=== PATIENT | female | born 1955 | race Caucasian/White ===

== ENCOUNTER 2017-05-02 13:31 | Emergency (ER) | payer BC ==
[~2017-05-02] VITALS: Ht 157.5 cm; Wt 67.0 kg
[~2017-05-02 13:31] MED LIST: effexor
[2017-05-02 13:36] VITALS: TEMP 36.4; Ht 157.5 cm; Wt 67.0 kg
[2017-05-02] MEDS ORDERED: OXYCODONE HCL IR 5 MG TAB (IMMEDIATE RELEASE) PO STA (14:05)
--- NOTE | 2017-05-02 14:46 | DIAGNOSTIC IMAGING REPORT ---
LUMBAR SPINE 5 VIEWS CLINICAL HISTORY: Low back pain. No history of trauma. FINDINGS: 5 views of the lumbar spine are obtained. No prior studies are available for comparison at the time of dictation. The skeletal structures are osteopenic. There is no radiographic evidence of fracture or malalignment. Vertebral body height and alignment are maintained. There are postoperative changes consistent with discectomy at L3-L4 with laminectomy and posterior fusion at this level. The orthopedic hardware appears intact. The transverse and remaining spinous processes are intact. Apparent mild lumbar levocurvature may be positional. Anterior osteophytes are seen at L2-L3 and L4-L5. There is no evidence of spondylolysis. Mild disc space narrowing is seen at L2-L3. The L3-L4 disc is surgically absent. The remaining disc spaces are maintained. Mild facet arthropathy seen at L5 to S1. The visualized bony pelvis appears intact. Mild sclerotic change is noted in the sacroiliac joints. There is a nonobstructed abdominal bowel gas pattern. Moderate constipation is observed. IMPRESSION: 1. No acute bony abnormality is seen involving the lumbosacral spine. 2. Osteopenia with mild spondylotic and postoperative change as above. Electronically signed by: Mejia Moreau M.D. 05/02/2017 2:45 PM Dictated Date/Time: 05/02/2017 2:43 PM
[2017-05-02] MEDS ORDERED: OXYC1TAB3 PO (15:23)
[2017-05-02 15:30] VITALS: BP 138/81; PULSE 79; O2SAT 99
--- NOTE | 2017-05-02 19:53 | EMERGENCY ROOM VISIT NOTE ---
History Report prepared by Arturo: Julai Smith Under the Supervision of: Dr. Fly Lezama M.D. First contact with patient: 13:55 Chief Complaint: BACK PAIN Stated Complaint: SEVERE BACK PAIN, SHOOTS DOWN LEGS History of Present Illness The patient is a 62 year old female who presents to the Emergency Room with complaints of worsening lower back pain for the past two days. She lifted a heavy suitcase on Wednesday and that exacerbated her pain. She then traveled for over 24 hours to return to [place] from [place]. She states that sitting for all of those hours also exacerbated her pain. The patient describes her pain as a sharp, burning pain and states that it shoots down both legs. She has intermittent tingling in the legs bilaterally. She rates her pain as a 10/10 in severity. Movement exacerbates her pain. She is taking Aleve and ibuprofen for her symptoms. The patient denies numbness, fever, chest pain, shortness of breath, abdominal pain, and loss of control of bowels or bladder. She has a history of a herniated nucleus pulposus and states that her current pain feels similar to the back pain that she experienced previously. Source of History: patient Onset: 2 days ago Position: back (lower) Symptom Intensity: 10/10 Quality: burning, sharp Timing: worsening Modifying Factors (Worsening): movement, other (heavy lifting, prolonged sitting) Associated Symptoms: No fevers, No chest pain, No SOB, No abdominal pain, No numbness Review of Systems See HPI for pertinent positives & negatives. A total of 10 systems reviewed and were otherwise negative. Past Medical & Surgical Medical Problems: (1) Disc displacement, lumbar Surgical Problems: (1) History of appendectomy (2) History of hysterectomy Family History Cancer Kidney disease Kidney stones Social History Smoking Status: Never Smoker Smokeless Tobacco Use: No Alcohol Use: none Drug Use: none Marital Status: Housing Status: lives with significant other Occupation Status: employed Current/Historical Medications Scheduled PRN Oxycodone Ir (Roxicodone Ir), 5 MG PO Q4H PRN for Pain Allergies Coded Allergies: No Known Allergies (Unverified , 07/19/13) Physical Exam Vital Signs Date Time Temp Pulse Resp B/P (MAP) Pulse Ox O2 Delivery O2 Flow Rate FiO2 05/02/17 15:30 79 20 138/81 99 Room Air 05/02/17 13:36 36.4 81 18 174/84 95 Room Air Physical Exam Constitutional: Vital signs reviewed. Eyes: Pupils are equal round reactive to light. Conjunctiva are noninjected. ENT: Pharynx is clear without erythema or exudate. Mucous membranes are moist. Neck supple without meningeal signs. Respiratory: Clear to auscultation bilaterally. Breath sounds are equal bilaterally. Cardiovascular: Regular rate and rhythm. No rubs or gallops. GI: Soft, nondistended and nontender. Bowel sounds are present. Musculoskeletal: Mild midline tenderness to the lumbosacral spine. No peripheral edema. No tenderness or lower extremities. Integumentary: No cyanosis. Neurological: The patient is awake and alert. No focal deficits. Motor and sensation intact throughout the lower extremities, DTR are 2+ ankles and knees, normal gait. Psychiatric: Normal affect. Medical Decision & Procedures ER Provider Diagnostic Interpretation: Radiology results as stated below per my review and the radiologist's interpretation: LUMBAR SPINE 5 VIEWS CLINICAL HISTORY: Low back pain. No history of trauma. FINDINGS: 5 views of the lumbar spine are obtained. No prior studies are available for comparison at the time of dictation. The skeletal structures are osteopenic. There is no radiographic evidence of fracture or malalignment. Vertebral body height and alignment are maintained. There are postoperative changes consistent with discectomy at L3-L4 with laminectomy and posterior fusion at this level. The orthopedic hardware appears intact. The transverse and remaining spinous processes are intact. Apparent mild lumbar levocurvature may be positional. Anterior osteophytes are seen at L2-L3 and L4-L5. There is no evidence of spondylolysis. Mild disc space narrowing is seen at L2-L3. The L3-L4 disc is surgically absent. The remaining disc spaces are maintained. Mild facet arthropathy seen at L5 to S1. The visualized bony pelvis appears intact. Mild sclerotic change is noted in the sacroiliac joints. There is a nonobstructed abdominal bowel gas pattern. Moderate constipation is observed. IMPRESSION: 1. No acute bony abnormality is seen involving the lumbosacral spine. 2. Osteopenia with mild spondylotic and postoperative change as above. Electronically signed by: Mejia Moreau M.D. 05/02/2017 2:45 PM Dictated Date/Time: 05/02/2017 2:43 PM Medications Administered Medications (Trade) Dose Ordered Sig/Alison Route Start Time Stop Time Status Last Admin Dose Admin Oxycodone HCl (Roxicodone Immediate Rel Tab) 5 mg NOW STAT PO 05/02/17 14:05 05/02/17 14:06 DC 05/02/17 14:17 5 MG ED Course 1355: The patient was evaluated in room B10. A complete history and physical exam was performed. 1405: Oxycodone HCl 5 mg PO 1521: I reassessed the patient at this time. She is feeling better and resting comfortably. I discussed the results and treatment plan with the patient. I answered all pertaining that she had. She expressed understanding and verbalized agreement. The patient will be discharged home. Medical Decision This is a 62-year-old female who presents with back pain. Differential diagnosis includes compression fracture, pathologic fracture, hardware displacement, lumbar disc disease, strain. I did perform a limited focused review of portions of the patient's old chart on the electronic medical record. The patient was admitted in 2012 for a herniated nucleus pulposus. Underwent lumbar decompression and spinal fusion by Dr. Moran. Medication Reconciliation: I attest that I have personally reviewed the patient' s current medication list. Blood Pressure Screening: Patient was found to have an elevated blood pressure and was referred to their primary doctor for recheck and further treatment. I did evaluate the patient as noted above. The patient is presenting with low back pain rating down both of her legs. She has a prior history of lumbar disc disease and underwent fusion and laminectomy. She is neurologically intact and has no signs of cauda equina syndrome or spinal cord involvement. I do not suspect DVT. She does not have any swelling to her legs. Her pain is from her back going down both legs with intermittent tingling. I did order and personally review the images of her x-rays. There is no evidence of acute fracture or hardware displacement. I did treat the patient with OxyIR. On reassessment the patient is feeling somewhat better. I did recommend follow up with Dr. Moran and her regular physician for further evaluation. She was given a short prescription for OxyIR and given precautions regarding this medication. She was given return instructions as outlined below. [place] Drug Monitoring Program Search Results: patient reviewed within database, no issues identified Impression Primary Impression: Lumbar radiculopathy Additional Impression: Low back pain Scribe Attestation The scribe's documentation has been prepared under my direct and personally reviewed by me in its entirety. I confirm that the note above accurately reflects all work, treatment, procedures, and medical decision making performed by me. Departure Information Dispostion Home / Self-Care Prescriptions Oxycodone Ir (Roxicodone Ir) 5 Mg Tab 5 MG PO Q4H Y for Pain, #20 TAB Prov: Fly Lezama M.D. 05/02/17 Referrals Gage White M.D. Forms HOME CARE DOCUMENTATION FORM, IMPORTANT VISIT INFORMATION Patient Instructions Back Pain - [facility], [facility] Additional Instructions You have been examined and treated today on an emergency basis only. This is not a substitute for, or an effort to provide, complete comprehensive medical care. It is impossible to recognize and treat all injuries or illnesses in a single emergency department visit. It is therefore important that you follow up closely with your physician. Call as soon as possible for an appointment. Return for worsening symptoms or if you develop fever, vomiting, abdominal pain , loss of control of your bowel or bladder, numbness or weakness to your legs, numbness to your private area, difficulty urinating, or any other concerning symptoms. Problem Qualifiers Additional Impression: Low back pain Chronicity: acute Back pain laterality: bilateral Sciatica presence: with sciatica Sciatica laterality: bilateral sciatica Qualified Codes: M54.42 - Lumbago with sciatica, left side; M54.41 - Lumbago with sciatica, right side
== END 2017-05-02 15:35 | disposition home or self-care (01) ==
LOC: C.EDB 13:32
DX: M54.16 Radiculopathy, lumbar region (principal); M54.5 Low back pain; M51.26 Other intervertebral disc displacement, lumbar region; Z90.710 Acquired absence of both cervix and uterus; Z98.890 Other specified postprocedural states; Z80.9 Family history of malignant neoplasm, unspecified; Z84.1 Family history of disorders of kidney and ureter

== ENCOUNTER 2021-07-26 14:44 | Inpatient (IN) ==
[2021-07-26] MEDS ORDERED: SODIUM CHLORIDE 0.9% 1000ML 1,000 ML IV SCH (16:30)
--- NOTE | 2021-07-26 16:38 | XRay Report ---
XR chest 1V portable HISTORY: 66 years-old Female weakness acute weakness COMPARISON: Chest radiograph 06/28/2013 TECHNIQUE: Portable AP view of the chest FINDINGS: Cardiac silhouette is mildly enlarged. Mild right hemidiaphragmatic elevation. Mild patchy bilateral ill-defined airspace opacities. No pneumothorax or large pleural effusion. Bones appear grossly intac t. IMPRESSION: Ill-defined bilateral pulmonary opacities are suspicious for pneumonia. ACT 112: Negative or not required by law. The above report was generated using voice recognition software. It may contain grammatical, syntax o r spelling errors. Electronically signed by: Gamaliel Gaspar M.D. 07/26/2021 4:37 PM
[2021-07-26] MEDS ORDERED: ONDANSETRON INJ 2 MG/ML 2 ML VIAL IV STA (16:45)
[2021-07-26] MEDS ORDERED: ACETAMINOPHEN 500 MG TAB PO STA (16:45)
--- NOTE | 2021-07-26 17:12 | Emergency Department Note ---
Impression & Plan COVID-19, Fatigue, Nausea, Diarrhea ED Provider Note INFORMANT: Patient ED PROVIDER(S): Estuardo Beaver MD CHIEF COMPLAINT: Dehydration PLAN: Disposition: Admitted Condition: Good Outpatient prescription management: none Referral: None MEDICAL DECISION MAKING: Patient presented to the emergency department because of worsening symptoms consistent with COVID-19 infection. Repeat Covid testing was performed and confirmed her infection. Chest x-ray was concerning for the same. The patient's blood work shows a mild dehydration. She was treated with hydration and Zofran in the ER. She was given Tylenol. She did feel somewhat better with this. Unfortunate her oxygen saturations diminished and she required supplemental oxygen. She was given IV Decadron. CT scan of the chest was performed and negative for thromboembolic disease. The patient had findings consistent with Covid pneumonia. The patient will need further management in the hospital. Patient was discussed with Dr. Mccauley and the patient was evaluated in the ER admitted. Triage Nursing notes reviewed and agree them. Vital Signs: reviewed and remarkable for no significant abnormalities. Differential diagnosis: COVID-19, infection, dehydration, metabolic abnormality, hypo/hyperglycemia, electrolyte disturbance, anemia, hypoxia, cardiac sources, intracerebral event, toxicologic, neurologic, as well as other pathologies. Diagnostics interpreted by me: EC Lead ECG performed and revealed Normal sinus rhythym at 74, normal [place], QRS normal. No elevation or depression. Non-specific ST. No PACs or PVCs Cardiac Monitoring: Cardiac monitoring ordered by me: The patient was placed on continuous cardiac monitoring and observed. It revealed a normal sinus rhythm at 66 beats per minute without ectopy or evidence of dysrhythmia. Imaging studies: Chest x-ray shows mild bibasilar infiltrates consistent with a mild pneumonia. Most likely due to Covid etiology. HPI: The patient is a 66 year old female who presents to the Emergency Room with complaints of dehydration. The patient is COVID-19 positive from a visit at urgent care. This started on the and is worsening. The patient also notes the following associated symptoms, nausea, poor appetite, poor p.o. intake, diarrhea, fatigue, mild headache, cough. The patient has been using [id number] medication for relieving factors. Current pain is rated as 2/10. Patient is not vaccinated against COVID-19. Pt denies LOC, fevers, chills, diaphoresis, visual changes, neck pain, chest pain, breathing difficulties, vomiting, abdominal pain, back pain, melena, hematochezia, urinary symptoms, numbness, focal weakness, lymphadenopathy, rash, or other complaints. ROS: See above HPI for pertinent positives & negatives. A total of 10 systems reviewed and were otherwise negative. PAST MEDICAL HISTORY:See Below , patient denies PAST SURGICAL HISTORY:See Below, FAMILY HISTORY:See Below SOCIAL HISTORY:See Below, non-smoker HOME MEDICATIONS:See Below, patient did [place] ALLERGIES:See Below VITALS:See Below PHYSICAL EXAMINATION: GENERAL: Awake, alert, mildly ill-appearing, in no distress HENT: Normocephalic, atraumatic. Oropharynx unremarkable except for dry mucous membranes. EYES: Normal conjunctiva. Sclera non-icteric. NECK: Inspection normal. Non-tender. Supple. No nuchal rigidity. FROM. No masses. RESPIRATORY: Clear to auscultation. No wheezes. No rales. Normal respiratory effort. CARDIAC: Normal rate. Normal rhythm. No murmurs. No rubs. Extremities warm and well perfused. Pulses equal. No JVD. GI: Soft, non-distended. No tenderness to palpation. No rebound or guarding. No masses. RECTAL: Deferred. MUSCULOSKELETAL: Atraumatic. Chest examination reveals no tenderness. The back is symmetrical on inspection without obvious abnormality. There is no CVA tenderness to palpation. No joint edema. LOWER EXTREMITIES: Calves are equal size bilaterally and non-tender. No edema. N o discoloration. NEURO: Normal sensorium. No sensory or motor deficits noted. SKIN: No rash or jaundice noted. Estuardo Beaver MD Past Med/Surg History Medical History Heartburn Surgical History History of appendectomy History of lumbosacral spine surgery Family History Mother Breast cancer Social History Smoking Status: Never smoker Hx Alcohol Use: No Hx Substance Use: No Preferred Language: Macedonian Communication Ability: Effective Feels Safe at Home: Yes Allergies Allergies Allergy/AdvReac Type Severity Reaction Status Date / Time No Known Allergies Allergy Unverified 07/26/21 16:57 Home Meds Home Medications Medication Instructions Recorded Confirmed omeprazole 20 mg capsule,delayed 20 mg PO DAILY 07/26/21 07/26/21 release Results & Data (ED) Vital Signs Vital Signs - 24 hr 07/26/21 14:51 07/26/21 17:01 07/26/21 17:09 Temperature 36.7 C Temperature Source Temporal Artery Scan Pulse Rate 91 H 91 H 81 Pulse Rate from SpO2 Sensor 81 Pulse Rhythm Regular Respiratory Rate 20 20 26 H Respiratory Effort / Characteristics Non-Labored Spontaneous Respiratory Depth Normal Respiratory Pattern Regular Blood Pressure 107/71 105/62 Blood Pressure Mean 83 76 Pulse Oximetry 96 96 95 Oxygen Delivery Method Room Air Room Air Oxygen Flow Rate Sepsis Recent Fever Within 48 Hours No Sepsis New/Unexplained Change in Mental Status No Sepsis Action Taken by Nursing No Action Required 07/26/21 17:30 07/26/21 17:45 07/26/21 17:46 Temperature Temperature Source Pulse Rate 72 Pulse Rate from SpO2 Sensor 73 Pulse Rhythm Respiratory Rate 30 H Respiratory Effort / Characteristics Respiratory Depth Respiratory Pattern Blood Pressure 105/62 Blood Pressure Mean 76 Pulse Oximetry 90 88 L Oxygen Delivery Method Room Air Nasal Cannula Oxygen Flow Rate 2 Sepsis Recent Fever Within 48 Hours Sepsis New/Unexplained Change in Mental Status Sepsis Action Taken by Nursing 07/26/21 18:00 Temperature Temperature Source Pulse Rate 68 Pulse Rate from SpO2 Sensor 68 Pulse Rhythm Respiratory Rate 24 Respiratory Effort / Characteristics Respiratory Depth Respiratory Pattern Blood Pressure 113/65 Blood Pressure Mean 81 Pulse Oximetry 95 Oxygen Delivery Method Nasal Cannula Oxygen Flow Rate 2 Sepsis Recent Fever Within 48 Hours Sepsis New/Unexplained Change in Mental Status Sepsis Action Taken by Nursing Laboratory Data Result diagrams: 07/26/21 17:14 07/26/21 17:14 Lab Results 07/26/21 07/26/21 07/26/21 Range/Units 17:14 17:14 17:14 WBC 4.89 (4.8-10.8) K/uL RBC 4.77 (4.2-5.4) M/uL Hgb 13.3 (12.0-16.0) g/dL Hct 39.8 (37-47) % MCV 83.4 (80-100) fL MCH 27.9 (25-34) pg MCHC 33.4 (32-36) g/dL RDW Std Deviation 39.0 (36.4-46.3) fL RDW Coeff of Bella 12.9 (11.5-14.5) % Plt Count 165 (130-400) K/uL MPV 11.4 H (7.4-10.4) fL Immature Gran % (Auto) 0.0 % Neut % (Auto) 82.2 % Lymph % (Auto) 10.4 % [place] % (Auto) 7.2 % Eos % (Auto) 0.0 % Baso % (Auto) 0.2 % Neut # (Auto) 4.02 (1.4-6.5) K/uL Lymph # (Auto) 0.51 L (1.2-3.4) K/uL [place] # (Auto) 0.35 (0.11-0.59) K/uL Eos # (Auto) 0.00 (0-0.5) K/uL Baso # (Auto) 0.01 (0-0.2) K/uL Immature Gran # (Auto) 0.00 (0.00-0.02) K/uL Sodium 136 (136-145) mmol/L Potassium 3.3 L (3.5-5.1) mmol/L Chloride 103 (98-107) mmol/L Carbon Dioxide 25 (21-32) mmol/L Anion Gap 8.0 (3-11) BUN 22 H (7-18) mg/dl Creatinine 1.01 (0.6-1.2) mg/dl Est Cr Clr Drug Dosing 51.2 ml/min Est GFR ( Amer) 68.1 ml/min Est GFR (Non-Af Amer) 58.8 ml/min BUN/Creatinine Ratio 21.6 H (10-20) Glucose 106 H (70-99) mg/dl Calcium 8.6 (8.5-10.1) mg/dl Magnesium 2.0 (1.8-2.4) mg/dl Total Bilirubin 0.5 (0.2-1) mg/dl AST 21 (15-37) U/L ALT 20 (12-78) U/L Alkaline Phosphatase 75 (45-117) U/L Troponin I < 0.015 (0-0.045) ng/ml C-Reactive Protein 1.86 H (0-0.29) mg/dl Total Protein 7.2 (6.4-8.2) gm/dl Albumin 3.3 L (3.4-5.0) gm/dl Globulin 3.9 (2.5-4.0) gm/dl Albumin/Globulin Ratio 0.8 L (0.9-2) TSH 1.360 (0.300-4.500) uIu/ml COVID-19 Eval Order Covid19 at [facility] SARS-CoV-2 (PCR) (Negative) 07/26/21 Range/Units 17:14 WBC (4.8-10.8) K/uL RBC (4.2-5.4) M/uL Hgb (12.0-16.0) g/dL Hct (37-47) % MCV (80-100) fL MCH (25-34) pg MCHC (32-36) g/dL RDW Std Deviation (36.4-46.3) fL RDW Coeff of Bella (11.5-14.5) % Plt Count (130-400) K/uL MPV (7.4-10.4) fL Immature Gran % (Auto) % Neut % (Auto) % Lymph % (Auto) % [place] % (Auto) % Eos % (Auto) % Baso % (Auto) % Neut # (Auto) (1.4-6.5) K/uL Lymph # (Auto) (1.2-3.4) K/uL [place] # (Auto) (0.11-0.59) K/uL Eos # (Auto) (0-0.5) K/uL Baso # (Auto) (0-0.2) K/uL Immature Gran # (Auto) (0.00-0.02) K/uL Sodium (136-145) mmol/L Potassium (3.5-5.1) mmol/L Chloride (98-107) mmol/L Carbon Dioxide (21-32) mmol/L Anion Gap (3-11) BUN (7-18) mg/dl Creatinine (0.6-1.2) mg/dl Est Cr Clr Drug Dosing ml/min Est GFR ( Amer) ml/min Est GFR (Non-Af Amer) ml/min BUN/Creatinine Ratio (10-20) Glucose (70-99) mg/dl Calcium (8.5-10.1) mg/dl Magnesium (1.8-2.4) mg/dl Total Bilirubin (0.2-1) mg/dl AST (15-37) U/L ALT (12-78) U/L Alkaline Phosphatase (45-117) U/L Troponin I (0-0.045) ng/ml C-Reactive Protein (0-0.29) mg/dl Total Protein (6.4-8.2) gm/dl Albumin (3.4-5.0) gm/dl Globulin (2.5-4.0) gm/dl Albumin/Globulin Ratio (0.9-2) TSH (0.300-4.500) uIu/ml COVID-19 Eval Order SARS-CoV-2 (PCR) POSITIVE A* (Negative) Administered Medications Discontinued Medications Acetaminophen (Acetaminophen 500 Mg Tab) 1,000 mg PO NOW STA Stop: 07/26/21 16:46 Last Admin: 07/26/21 17:16 Dose: 1,000 mg Documented by: [id number] Dexamethasone Sodium Phosphate (DexamethasonePf 10 Mg/Ml Vial) 6 mg IV NOW ONE Stop: 07/26/21 18:10 Last Admin: 07/26/21 18:41 Dose: 6 mg Documented by: [id number] Sodium Chloride (Nss 1000ml) 1,000 mls @ 125 mls/hr IV .Q8H MAYO Stop: 07/27/21 00:29 Last Admin: 07/26/21 22:28 Dose: 125 mls/hr Documented by: [id number] Infusion: 07/26/21 22:28 Dose: 125 mls/hr Documented by: [id number] Admin: 07/26/21 17:52 Dose: 125 mls/hr Documented by: [id number] Sodium Chloride (Nss 1000ml) 1,000 mls @ 999 mls/hr IV .Q1H1M MAYO Stop: 07/26/21 17:30 Last Infusion: 07/26/21 18:31 Dose: 0 mls/hr Documented by: [id number] Admin: 07/26/21 17:16 Dose: 999 mls/hr Documented by: [id number] Remdesivir 200 mg/ Sodium (Chloride) 250 mls @ 125 mls/hr IV ONE STA; Protocol Stop: 07/26/21 21:01 Last Infusion: 07/26/21 22:28 Dose: 0 mls/hr Documented by: [id number] Admin: 07/26/21 20:09 Dose: 125 mls/hr Documented by: [id number] Ioversol (Optiray 320 125ml) 118 ml IV ONCE ONE Stop: 07/26/21 18:21 Last Admin: 07/26/21 18:20 Dose: 118 ml Documented by: [id number] Ondansetron HCl (Ondansetron Inj 2 Mg/Ml 2 Ml Vial) 4 mg IV NOW STA Stop: 07/26/21 16:46 Last Admin: 07/26/21 17:16 Dose: 4 mg Documented by: [id number] Potassium Chloride (Potassium Chloride Crtab 20 Meq Tabcr) 40 meq PO NOW STA Stop: 07/26/21 19:01 Last Admin: 07/26/21 20:10 Dose: 40 meq Documented by: [id number] Imaging Data Radiologist's Impression: Chest X-Ray 07/26/21 16:18 XR chest 1V portable HISTORY: 66 years-old Female weakness acute weakness COMPARISON: Chest radiograph 06/28/2013 TECHNIQUE: Portable AP view of the chest FINDINGS: Cardiac silhouette is mildly enlarged. Mild right hemidiaphragmatic elevation. Mild patchy bilateral ill-defined airspace opacities. No pneumothorax or large pleural effusion. Bones appear grossly intact. IMPRESSION: Ill-defined bilateral pulmonary opacities are suspicious for pneumonia. ACT 112: Negative or not required by law. The above report was generated using voice recognition software. It may contain grammatical, syntax or spelling errors. Electronically signed by: Gamaliel Gaspar M.D. 07/26/2021 4:37 PM Chest CTA 07/26/21 18:08 CT angio chest PE protocol CT DOSE: 228.80 mGy.cm HISTORY: 66 years-old Female with ?PE, +covid. Acute shortness of breath. COVID Positive. TECHNIQUE: Multiple CTA images of the chest were obtained after the intravenous administration of 118 ml Optiray. Coronal and sagittal MIPS were obtained from the axial data set and were submitted for review. All measurements were obtained according to NASCET criteria. A dose lowering technique was utilized adhering to the principles of ALARA. COMPARISON: Chest radiograph of same day FINDINGS: CTA: Moderate cardiomegaly. No pericardial effusion. Mild atherosclerosis of the aorta without aneurysm or dissection. Respiratory motion artifact mildly limits evaluation of the pulmonary arterial tree. No filling defects identified to suggest thromboembolic disease. CT CHEST: Unremarkable thyroid. Mildly enlarged paratracheal lymph nodes measure up to 10 mm. Prominent nonenlarged hilar lymph nodes. No pneumothorax, or pleural effusion. Patchy multifocal subpleural predominant groundglass opacities are noted within all lobes bilaterally. Mild mosaic attenuation of the lung bases suggest air-trapping. Bronchial wall thickening suggestive of bronchitis. No pneumoperitoneum. Small hiatal hernia. There is an ill-defined hypodense 3.1 cm lesion of the posterior right hepatic lobe on image 12 of series 2. Unremarkable soft tissues. No acute fracture. IMPRESSION: 1. No pulmonary emboli. 2. Multilobar bilateral groundglass densities are suggestive of viral pneumonia. 3. Reactive mediastinal and hilar adenopathy. 4. Small hiatal hernia. 5. Indeterminate ill-defined 3.1 cm lesion of the posterior right hepatic lobe. This could be correlated with a nonemergent follow-up CT or MRI of the liver. ACT 112: Negative or not required by law. The above report was generated using voice recognition software. It may contain grammatical, syntax or spelling errors. Electronically signed by: Gamaliel Gaspar M.D. 07/26/2021 6:53 PM Discharge Plan Visit Data Chief Complaint: Dehydration Stated Complaint: covid+ 9-20-21, dehydrated, vomit, fatigue ED Provider: Estuardo Beaver Discharge Problem: COVID-19, Fatigue, Nausea, Diarrhea Discharge Instructions Interventions: ED Discharge Assessment Last Done: 07/26/21 21:23
[2021-07-26 17:32] LABS: Basophils # (auto) 0.01 K/uL (0-0.2); Basophils % (auto) 0.2 %; Hematocrit (blood only) 39.8 % (37-47); Hemoglobin 13.3 g/dL (12.0-16.0); Lymphocytes # (auto) 0.51 K/uL (1.2-3.4); Lymphocytes % (auto) 10.4 %; Mean Corpuscular Hemoglobin 27.9 pg (25-34); Mean Corpuscular Hgb Conc 33.4 g/dL (32-36); Mean Corpuscular Volume 83.4 fL (80-100); Mean Platelet Volume 11.4 fL (7.4-10.4); Monocytes # (auto) 0.35 K/uL (0.11-0.59); Monocytes % (auto) 7.2 %; Neutrophils # (auto) 4.02 K/uL (1.4-6.5); Neutrophils % (auto) 82.2 %; Platelet Count 165 K/uL (130-400); RDW Coefficient of Variation 12.9 % (11.5-14.5); Red Blood Count 4.77 M/uL (4.2-5.4); White Blood Count 4.89 K/uL (4.8-10.8)
[2021-07-26] MEDS: SODIUM CHLORIDE 0.9% 1000ML 1,000 ML IV SCH ×2 (17:52→22:28)
[2021-07-26 17:53] LABS: Alanine Aminotransferase 20 U/L (12-78); Albumin Level 3.3 gm/dl (3.4-5.0); Aspartate Aminotransferase 21 U/L (15-37); BUN Creatinine Ratio 21.6 (10-20); Blood Urea Nitrogen 22 mg/dl (7-18); Calcium 8.6 mg/dl (8.5-10.1); Carbon Dioxide 25 mmol/L (21-32); Chloride 103 mmol/L (98-107); Creatinine Clr Calc Pharmacy 51.2 ml/min; Est GFR (African American) 68.1 ml/min; Est GFR (Non-African American) 58.8 ml/min; Glucose 106 mg/dl (70-99); Potassium 3.3 mmol/L (3.5-5.1); Sodium 136 mmol/L (136-145)
[2021-07-26 18:04] LABS: Albumin Globulin Ratio 0.8 (0.9-2); Alkaline Phosphatase 75 U/L (45-117); Bilirubin,Total 0.5 mg/dl (0.2-1); Globulin 3.9 gm/dl (2.5-4.0); Total Protein 7.2 gm/dl (6.4-8.2); Troponin I < 0.015 ng/ml (0-0.045)
[2021-07-26] MEDS ORDERED: dexAMETHasone**PF** 10 MG/ML VIAL IV ONE (18:09)
[2021-07-26] MEDS ORDERED: OPTIRAY 320 125ml IV ONE (18:20)
--- NOTE | 2021-07-26 18:34 | History & Physical Report ---
Date of Service July 26, 2021 Assessment & Plan (1) Pneumonia due to COVID-19 virus: Plan: Decadron given in the ER, minimal oxygen requirement this time. Monitor closely on med telemetry. We will start her on remdesivir therapy daily. Pending CRP and pro calcitonin. Patient does not appear septic. No evidence of pulmonary embolus on CT of the chest. Continues court of care. Educated patient on how to prone and encouraged her to do this as often as she is able to tolerate. She verbalized understanding with intent to comply. (2) Hypokalemia: Plan: Diarrhea related to Covid infection. Imodium as needed replace lites as needed. BMP with mag in am. (3) Liver lesion: Plan: Indeterminate ill-defined 3.1 cm lesion of the posterior right hepatic lobe, nonemergent follow-up CT or MRI of the liver (4) DVT prophylaxis: Plan: Lovenox Full code Disposition-to med telemetry [facility] of Present Illness Chief Complaint: worsening covid symptoms Primary Care Provider: Gage White MD The patient is a 66-year-old otherwise healthy female who presented with worsening Covid symptoms. She reports that on , she began to experience fatigue with subsequent worsening of nausea over the weekend followed by vomiting and diarrhea starting on the . On the she went to a urgent care facility and was tested positive for Covid. This was approximately 4 days ago. Since that time she has had worsening apathy to food and worsening diarrhea especially when she eats anything. She denies any abdominal pain, chest pain, productive cough, fevers, chills. She denies taking anything at home for this and is on Prilosec as needed. She is unvaccinated. She is currently on 2 L/min via nasal cannula. Allergies Allergy/AdvReac Type Severity Reaction Status Date / Time No Known Allergies Allergy Unverified 07/26/21 16:57 Home Medications Medication Instructions Recorded Confirmed Type omeprazole 20 mg capsule,delayed 20 mg PO DAILY 07/26/21 07/26/21 History release Past Med/Surg History Medical History Heartburn Surgical History History of appendectomy History of lumbosacral spine surgery Family History Mother Breast cancer Social History Smoking Status: Never smoker Hx Alcohol Use: No Hx Substance Use: No Preferred Language: Polish Communication Ability: Effective Feels Safe at Home: Yes Review of Systems Review of Systems: At least ten systems were reviewed and negative except as indicated in HPI above. Physical Exam Physical Exam: CONSTITUTIONAL: WNWD, vitals as above, mildly ill-appearing, ,NAD EYES: PERRL, normal conjunctivae, no scleral icterus ENT: external ear and nose normal, oropharynx clear, MMM NECK: trachea midline RESPIRATORY: crackles in the right lung smith, no rales or wheezes, normal respiratory effort CARDIOVASCULAR: regular rate and rhythm, S1 and 2 heard without murmurs, gallops or rubs, no JVD, no peripheral edema CHEST: inspection of chest was normal GASTROINTESTINAL: soft, nontender, no guarding MUSCULOSKELETAL: strength 5/5 throughout, head is normocephalic and atraumatic SKIN: warm and dry NEUROLOGIC: No facial palsy, no dysarthria. CN 2-12 grossly intact, no sensory deficit, normal cognition, normal speech, no tremor PSYCHIATRIC: alert cooperative and oriented to person, place and time. Results & Data Results & Data ([facility]) Vital Signs (Past 12 Hours) Vital Signs Temp Pulse Resp BP Pulse Ox 07/26/21 17:45 88 L 07/26/21 17:30 72 30 H 105/62 90 07/26/21 17:09 81 26 H 105/62 95 07/26/21 17:01 91 H 20 96 07/26/21 14:51 36.7 C 91 H 20 107/71 96 Laboratory Results Short CBC 07/26/21 Range/Units 17:14 WBC 4.89 (4.8-10.8) K/uL Hgb 13.3 (12.0-16.0) g/dL Hct 39.8 (37-47) % Plt Count 165 (130-400) K/uL BMP 07/26/21 17:14 Sodium 136 Potassium 3.3 L Chloride 103 Carbon Dioxide 25 BUN 22 H Creatinine 1.01 Glucose 106 H Calcium 8.6 Cardiac Enzymes 07/26/21 Range/Units 17:14 Troponin I < 0.015 (0-0.045) ng/ml Liver Function 07/26/21 Range/Units 17:14 Total Bilirubin 0.5 (0.2-1) mg/dl AST 21 (15-37) U/L ALT 20 (12-78) U/L Alkaline Phosphatase 75 (45-117) U/L Albumin 3.3 L (3.4-5.0) gm/dl Diagnostic Findings Chest X-Ray 07/26/21 16:18 XR chest 1V portable HISTORY: 66 years-old Female weakness acute weakness COMPARISON: Chest radiograph 06/28/2013 TECHNIQUE: Portable AP view of the chest FINDINGS: Cardiac silhouette is mildly enlarged. Mild right hemidiaphragmatic elevation. Mild patchy bilateral ill-defined airspace opacities. No pneumothorax or large pleural effusion. Bones appear grossly intact. IMPRESSION: Ill-defined bilateral pulmonary opacities are suspicious for pneumonia. ACT 112: Negative or not required by law. The above report was generated using voice recognition software. It may contain grammatical, syntax or spelling errors. Electronically signed by: Gamaliel Gaspar M.D. 07/26/2021 4:37 PM Chest CTA 07/26/21 18:08 CT angio chest PE protocol CT DOSE: 228.80 mGy.cm HISTORY: 66 years-old Female with ?PE, +covid. Acute shortness of breath. COVID Positive. TECHNIQUE: Multiple CTA images of the chest were obtained after the intravenous administration of 118 ml Optiray. Coronal and sagittal MIPS were obtained from the axial data set and were submitted for review. All measurements were obtained according to NASCET criteria. A dose lowering technique was utilized adhering to the principles of ALARA. COMPARISON: Chest radiograph of same day FINDINGS: CTA: Moderate cardiomegaly. No pericardial effusion. Mild atherosclerosis of the aorta without aneurysm or dissection. Respiratory motion artifact mildly limits evaluation of the pulmonary arterial tree. No filling defects identified to suggest thromboembolic disease. CT CHEST: Unremarkable thyroid. Mildly enlarged paratracheal lymph nodes measure up to 10 mm. Prominent nonenlarged hilar lymph nodes. No pneumothorax, or pleural effusion. Patchy multifocal subpleural predominant groundglass opacities are noted within all lobes bilaterally. Mild mosaic attenuation of the lung bases suggest air-trapping. Bronchial wall thickening suggestive of bronchitis. No pneumoperitoneum. Small hiatal hernia. There is an ill-defined hypodense 3.1 cm lesion of the posterior right hepatic lobe on image 12 of series 2. Unremarkable soft tissues. No acute fracture. IMPRESSION: 1. No pulmonary emboli. 2. Multilobar bilateral groundglass densities are suggestive of viral pneumonia. 3. Reactive mediastinal and hilar adenopathy. 4. Small hiatal hernia. 5. Indeterminate ill-defined 3.1 cm lesion of the posterior right hepatic lobe. This could be correlated with a nonemergent follow-up CT or MRI of the liver. ACT 112: Negative or not required by law. The above report was generated using voice recognition software. It may contain grammatical, syntax or spelling errors. Electronically signed by: Gamaliel Gaspar M.D. 07/26/2021 6:53 PM Code Status & VTE Plan VTE Prophylaxis Plan VTE Prophylaxis will be ordered: Yes
--- NOTE | 2021-07-26 18:54 | CT Scan Report ---
CT angio chest PE protocol CT DOSE: 228.80 mGy.cm HISTORY: 66 years-old Female with ?PE, +covid. Acute shortness of breath. COVID Positive. TECHNIQUE: Multiple CTA images of the chest were obtained after the intravenous administration of 118 ml Optiray. Coronal and sagittal MIPS were obtained from the axial data set and were submitted for review. All measurements were obtained according to NASCET criteria. A dose lowering technique was u tilized adhering to the principles of ALARA. COMPARISON: Chest radiograph of same day FINDINGS: CTA: Moderate cardiomegaly. No pericardial effusion. Mild atherosclerosis of the aorta without aneurysm or dissection. Respiratory motion artifact mildly limits evaluation of the pulmonary arterial tree. No filling defects identified to suggest thromboembolic disease. CT CHEST: Unremarkable thyroid. Mildly enlarged paratracheal lymph nodes measure up to 10 mm. Prominent nonenla rged hilar lymph nodes. No pneumothorax, or pleural effusion. Patchy multifocal subpleural predominan t groundglass opacities are noted within all lobes bilaterally. Mild mosaic attenuation of the lung b ases suggest air-trapping. Bronchial wall thickening suggestive of bronchitis. No pneumoperitoneum. Small hiatal hernia. There is an ill-defined hypodense 3.1 cm lesion of the post erior right hepatic lobe on image 12 of series 2. Unremarkable soft tissues. No acute fracture. IMPRESSION: 1. No pulmonary emboli. 2. Multilobar bilateral groundglass densities are suggestive of viral pneumonia. 3. Reactive mediastinal and hilar adenopathy. 4. Small hiatal hernia. 5. Indeterminate ill-defined 3.1 cm lesion of the posterior right hepatic lobe. This could be correla gretchen with a nonemergent follow-up CT or MRI of the liver. ACT 112: Negative or not required by law. The above report was generated using voice recognition software. It may contain grammatical, syntax o r spelling errors. Electronically signed by: Gamaliel Gaspar M.D. 07/26/2021 6:53 PM
[2021-07-26] MEDS ORDERED: POTASSIUM CHLORIDE CRTAB 20 MEQ TABCR PO STA (19:00)
[2021-07-26] MEDS ORDERED: REMDESIVIR 200 MG in SODIUM CHLORIDE 0.9% 210 ML IV STA (19:02)
[2021-07-26 19:53] LABS: C Reactive Protein 1.86 mg/dl (0-0.29)
[2021-07-26] MEDS ORDERED: LOPERAMIDE HCL 2 MG CAP PO PRN (21:54)
[2021-07-26] MEDS ORDERED: POLYETHYLENE (MIRALAX) 17 GM PACK PO PRN (21:54)
[2021-07-26] MEDS ORDERED: ALUMINUM/MAGNESIUM SUSP 30 ML UDC PO PRN (21:54)
[2021-07-26] MEDS ORDERED: ONDANSETRON INJ 2 MG/ML 2 ML VIAL IV PRN (21:54)
[2021-07-26] MEDS ORDERED: ACETAMINOPHEN 325 MG TAB PO PRN (21:54)
[2021-07-27 06:42] LABS: Hematocrit (blood only) 36.4 % (37-47); Hemoglobin 12.3 g/dL (12.0-16.0); Mean Corpuscular Hemoglobin 27.6 pg (25-34); Mean Corpuscular Hgb Conc 33.8 g/dL (32-36); Mean Corpuscular Volume 81.8 fL (80-100); Mean Platelet Volume 10.6 fL (7.4-10.4); Platelet Count 154 K/uL (130-400); RDW Standard Deviation 39.5 fL (36.4-46.3); Red Blood Count 4.45 M/uL (4.2-5.4); White Blood Count 3.97 K/uL (4.8-10.8)
[2021-07-27 07:26] LABS: BUN Creatinine Ratio 24.8 (10-20); C Reactive Protein 1.9 mg/dl (0-0.29); Calcium 8.2 mg/dl (8.5-10.1); Creatinine Clr Calc Pharmacy 69.9 ml/min; Est GFR (African American) 97.6 ml/min; Est GFR (Non-African American) 84.2 ml/min; Magnesium 2.2 mg/dl (1.8-2.4); Phosphorus 3.3 mg/dl (2.5-4.9); Potassium 3.9 mmol/L (3.5-5.1)
[2021-07-27] MEDS: dexAMETHasone 6 MG in SYRINGE 0 ML IV SCH (08:10)
[2021-07-27] MEDS: PANTOprazole 40 MG TAB PO SCH (08:11)
[2021-07-27] MEDS: ENOXAPARIN INJ 40 MG/0.4 ML SYR SQ SCH (08:11)
--- NOTE | 2021-07-27 18:03 | Hospitalist Progress Note ---
Date of Service July 27, 2021 Assessment & Plan (1) Pneumonia due to COVID-19 virus: Plan: Continue dexamethasone and remdesivir daily. As patient is now off oxygen at rest will give her trial of two-step test in a.m. Possible discharge to home tomorrow. Continue supportive care (2) Hypokalemia: Plan: Diarrhea related to Covid infection-improved. Imodium as needed replace lites as needed. Replace lytes as needed. (3) Liver lesion: Plan: Indeterminate ill-defined 3.1 cm lesion of the posterior right hepatic lobe, n onemergent follow-up CT or MRI of the liver (4) DVT prophylaxis: Plan: Lovenox Full code Disposition-poss DC to home in am. Paulette Mccauley DO [facility] Hospitalist Admission and Anticipated Discharge Date Admission Date: July 26, 2021 Subjective 66-year-old female admitted with Covid pneumonia She is feeling better today overall Denies shortness of breath, some residual cough present, afebrile, no chills Tolerating p.o. Appears to be off oxygen and oxygenating well on room air. Physical Exam Physical Exam: CONSTITUTIONAL: WNWD, vitals as above, mildly ill-appearing, ,NAD EYES: PERRL, normal conjunctivae, no scleral icterus ENT: external ear and nose normal, oropharynx clear, MMM NECK: trachea midline RESPIRATORY: crackles in the right lung smith, no rales or wheezes, normal respiratory effort CARDIOVASCULAR: regular rate and rhythm, S1 and 2 heard without murmurs, gallops or rubs, no JVD, no peripheral edema CHEST: inspection of chest was normal GASTROINTESTINAL: soft, nontender, no guarding MUSCULOSKELETAL: strength 5/5 throughout, head is normocephalic and atraumatic SKIN: warm and dry NEUROLOGIC: No facial palsy, no dysarthria. CN 2-12 grossly intact, no sensory deficit, normal cognition, normal speech, no tremor PSYCHIATRIC: alert cooperative and oriented to person, place and time. Results & Data Results & Data ([facility]) Vital Signs (Past 12 Hours) Vital Signs Temp Pulse Resp BP Pulse Ox 07/27/21 15:46 37 C 67 16 122/70 94 07/27/21 11:17 36.5 C 73 18 125/72 94 07/27/21 08:07 36.8 C 18 115/63 97 Laboratory Results Short CBC 07/27/21 Range/Units 06:29 WBC 3.97 L (4.8-10.8) K/uL Hgb 12.3 (12.0-16.0) g/dL Hct 36.4 L (37-47) % Plt Count 154 (130-400) K/uL BMP 07/27/21 06:29 Sodium 142 Potassium 3.9 D Chloride 113 H Carbon Dioxide 24 BUN 19 H Creatinine 0.75 Glucose 99 Calcium 8.2 L Cardiac Enzymes 07/26/21 Range/Units 17:14 Troponin I < 0.015 (0-0.045) ng/ml Liver Function 07/26/21 Range/Units 17:14 Total Bilirubin 0.5 (0.2-1) mg/dl Alkaline Phosphatase 75 (45-117) U/L Medications Administered Current Inpatient Medications Acetaminophen (Acetaminophen 325 Mg Tab) 650 mg PO Q4H PRN PRN Reason: Pain or Fever Stop: 08/25/21 21:53 Al Hydrox/Mg Hydrox/Simethicone (Aluminum/Magnesium Susp 30 Ml Udc) 15 ml PO Q4H PRN PRN Reason: Dyspepsia Stop: 08/25/21 21:53 Enoxaparin Sodium (Enoxaparin Inj 40 Mg/0.4 Ml Syr) 40 mg SQ QAM MAYO Stop: 08/26/21 08:59 Last Admin: 07/27/21 08:11 Dose: 40 mg Documented by: Dexamethasone 6 mg/ Syringe 1.5 mls @ 1 mls/min IV DAILY MAYO Stop: 08/26/21 08:59 Last Admin: 07/27/21 08:10 Dose: 1 mls/min Documented by: Remdesivir 100 mg/ Sodium (Chloride) 250 mls @ 250 mls/hr IV Q24H MAYO; Protocol Stop: 07/30/21 20:59 Loperamide HCl (Loperamide Hcl 2 Mg Cap) 2 mg PO UD PRN PRN Reason: Diarrhea Stop: 08/25/21 21:53 Ondansetron HCl (Ondansetron Inj 2 Mg/Ml 2 Ml Vial) 4 mg IV Q6H PRN PRN Reason: Nausea Stop: 08/25/21 21:53 Pantoprazole Sodium (Pantoprazole 40 Mg Tab) 40 mg PO DAILY MAYO Stop: 08/26/21 08:59 Last Admin: 07/27/21 08:11 Dose: 40 mg Documented by: Polyethylene Glycol (Polyethylene (Miralax) 17 Gm Pack) 17 gm PO DAILY PRN PRN Reason: Constipation Stop: 08/25/21 21:53 Sodium Chloride (Sodium Chloride 0.9% 10ml Flush) 30 ml IV Q24H [facility] Stop: 07/30/21 20:01
[2021-07-27] MEDS ORDERED: REMDESIVIR 100 MG in SODIUM CHLORIDE 0.9% 230 ML IV SCH (20:00)
[2021-07-27] MEDS ORDERED: SODIUM CHLORIDE 0.9% 10ML FLUSH IV SCH (20:00)
--- NOTE | 2021-07-28 05:51 | Electrocardiogram Report ---
Test Reason : Blood Pressure : / mmHG Vent. Rate : 074 BPM Atrial Rate : 074 BPM P-R Int : 140 ms QRS Dur : 094 ms QT Int : 374 ms P-R-T Axes : 039 037 029 degrees QTc Int : 415 ms Normal sinus rhythm Nonspecific T wave abnormality When compared with ECG of 28-JUN-2013 15:52, Nonspecific T wave abnormality is now Present in Anterior leads Confirmed by Eliseo Valladares ([id number]) on 07/28/2021 5:50:37 AM Referred By: REFERRED SELF Confirmed By:Eliseo Valladares
[2021-07-28 06:45] LABS: Hematocrit (blood only) 34.1 % (37-47); Hemoglobin 11.4 g/dL (12.0-16.0); Mean Corpuscular Hemoglobin 27.4 pg (25-34); Mean Corpuscular Hgb Conc 33.4 g/dL (32-36); Mean Platelet Volume 11.2 fL (7.4-10.4); Platelet Count 174 K/uL (130-400); RDW Coefficient of Variation 13.1 % (11.5-14.5); RDW Standard Deviation 39.8 fL (36.4-46.3); Red Blood Count 4.16 M/uL (4.2-5.4); White Blood Count 4.47 K/uL (4.8-10.8)
[2021-07-28 07:15] LABS: BUN Creatinine Ratio 25.4 (10-20); Calcium 8.5 mg/dl (8.5-10.1); Creatinine Clr Calc Pharmacy 64.7 ml/min; Est GFR (African American) 90.3 ml/min; Est GFR (Non-African American) 77.9 ml/min; Magnesium 2.2 mg/dl (1.8-2.4)
[2021-07-28] MEDS: ENOXAPARIN INJ 40 MG/0.4 ML SYR SQ SCH (09:05)
[2021-07-28] MEDS: dexAMETHasone 6 MG in SYRINGE 0 ML IV SCH (09:05)
[2021-07-28] MEDS: PANTOprazole 40 MG TAB PO SCH (09:05)
[2021-07-28 11:07] LABS: Appearance Urine Clear (Clear); Bacteria Urine Automated Negative (Negative); Blood Urine Negative (Negative); Color Urine Dark Yellow; Epithelial Cell Urine Auto 20-30 /lpf (0-5); Glucose Urine UA Negative (Negative); Ketones Urine Trace (Negative); Leukocyte Esterase Urine Negative (Negative); Nitrite Urine Negative (Negative); Protein Urine Trace (Negative); Specific Gravity Urine 1.029 (1.000-1.030); Urobilinogen Urine Negative (Negative); pH Urine 5.5 (4.5-7.5)
[2021-07-28 11:21] LABS: Bilirubin Urine 1+ (Negative)
--- NOTE | 2021-07-28 16:40 | Discharge Summary ---
Date of Service July 28, 2021 Admission HPI Per Admitting Provider The patient is a 66-year-old otherwise healthy female who presented with worsening Covid symptoms. She reports that on , she began to experience fatigue with subsequent worsening of nausea over the weekend followed by vomiting and diarrhea starting on the . On the she went to a urgent care facility and was tested positive for Covid. This was approximately 4 days ago. Since that time she has had worsening apathy to food and worsening diarrhea especially when she eats anything. She denies any abdominal pain, chest pain, productive cough, fevers, chills. She denies taking anything at home for this and is on Prilosec as needed. She is unvaccinated. She is currently on 2 L/min via nasal cannula. Admission Exam Per Admitting Provider CONSTITUTIONAL: WNWD, vitals as above, mildly ill-appearing, ,NAD EYES: PERRL, normal conjunctivae, no scleral icterus ENT: external ear and nose normal, oropharynx clear, MMM NECK: trachea midline RESPIRATORY: crackles in the right lung smith, no rales or wheezes, normal respiratory effort CARDIOVASCULAR: regular rate and rhythm, S1 and 2 heard without murmurs, gallops or rubs, no JVD, no peripheral edema CHEST: inspection of chest was normal GASTROINTESTINAL: soft, nontender, no guarding MUSCULOSKELETAL: strength 5/5 throughout, head is normocephalic and atraumatic SKIN: warm and dry NEUROLOGIC: No facial palsy, no dysarthria. CN 2-12 grossly intact, no sensory deficit, normal cognition, normal speech, no tremor PSYCHIATRIC: alert cooperative and oriented to person, place and time. Principal Diagnosis Covid pneumonia Discharge Exam General: A&Ox3 HENT: NCAT, MMM, EOMI Eyes: PERRLA Neck: Supple, normal range of motion CVS: normal rate and rhythm Resp: b/l good breath sounds Abdomen: Soft, ND/NT, +BS Extremities: No c/c/e Neuro: face symmetric, strength grossly equal, no focal deficit Skin: warm and dry, no rashes/lesions/errythema MSK: normal ROM, no joint swelling/erythema Discharge Data Allergies Allergy/AdvReac Type Severity Reaction Status Date / Time No Known Allergies Allergy Unverified 07/26/21 16:57 Consultations 07/26/21 18:34 ED Decision to Admit Stat Ordered Studies 07/26/21 18:08 CT angio chest PE protocol Stat Hospital Course (1) Pneumonia due to COVID-19 virus: Patient was given a short course of remdesivir/Decadron with hospitalizati on. Prior to discharge patient was room air she was hemodynamically stable she did not have any major complaints. Review of system is mainly negative. Was discharged on a short course of steroids he did have a two-step active discharge and she did okay. (2) Hypokalemia: Diarrhea related to Covid infection-improved. Imodium as needed replace lites as needed. Replace lytes as needed. (3) Liver lesion: Indeterminate ill-defined 3.1 cm lesion of the posterior right hepatic lobe, nonemergent follow-up CT or MRI of the liver. Patient will need to have work-up as an outpatient. Total Time Total Time Spent Total Time Spent (In Minutes): 25 Discharge Plan Discharge Items Patient Disposition: Home - Self-Care Reason For Visit: COVID PNEUMONIA Discharge Diagnosis: COVID Pleumonia Activity: Resume your previous activity Non-emergency contact: Primary Care Provider Call non-emergency contact if: your symptoms worsen Follow-up/Referrals: Gage White MD [Primary Care Provider] - 08/11/21 11:00 am (with Annabel Chavez PA-C) Diet: Heart Healthy Addtl Attending Provider Instructions: Follow-up with your primary care physician. Take Decadron for 4 more days. Pending Studies at Discharge: No Stand[facility]Alone [facility]School [facility], Smoking Cessation Medications and DC Order Prescriptions: New dexamethasone [Decadron] 6 mg tablet 6 mg PO DAILY Qty: 4 RF: 0 Continued omeprazole 20 mg capsule,delayed release(DR/EC) 20 mg PO DAILY RF: 0 Discharge Orders: Discharge Order (Routine); Ordered 07/28/21 Ordered By: Shannan Jackson Admission Data Admit Date/Time: 07/26/21 18:29 Attending Provider: Shannan Jackson Admit Provider: Paulette Mccauley Primary Care Provider: Gage White Other Providers: Paulette Mccauley Other Interventions: Discharge Summary Assessment (RN) Last Done: 07/28/21 12:17
== END 2021-07-28 12:56 | disposition home or self-care (01) | DRG 177 ==
LOC: ED 14:44 → 2N 18:29 → SUATTDRO 18:29 → 2N 21:23